=== PATIENT | male | born 2000 | race Caucasian/White ===

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

== ENCOUNTER 2022-09-29 10:45 | Emergency (ER) | payer BC, SELFPAY ==
[2022-09-29 13:05] VITALS: BP 0/0; PULSE 0; RESP 0; TEMP -17.7; TEMP 0
== END 2022-09-29 13:06 | disposition left against medical advice (07) ==
LOC: UTC 10:50
PROVIDERS: Emergency Provider Nurse Practitioner Family; PCP Family Medicine
DX: Z53.21 Procedure and treatment not carried out due to patient leaving prior to being seen by health care provider (principal)

== ENCOUNTER 2024-07-20 13:17 | Emergency (ER) | payer BC, SELFPAY ==
[2024-07-20 13:30] VITALS: BP 143/85; PULSE 74; RESP 20; TEMP 36.7; O2SAT 96; BMI 21.1
--- NOTE | 2024-07-20 13:40 | ED_ITS ---
Discharge Plan Disposition Patient Disposition: Home, Self-Care Condition: Good Prescriptions Prescriptions: New ondansetron 4 mg Tablet,Disintegrating 4 mg PO Q8H PRN (Reason: Nausea) Qty: 20 0RF Referrals Follow up/Referrals: Gianna Dennis MD [Primary Care Provider] - See instructions Activity Restrictions/Add. Instructions Additional Instructions/Restrictions: Drink extra fluids with and between meals. If you have difficulty drinking, try very small amounts of water or suck on ice chips. ? Avoid fruit juices, as these do not replace minerals and can actually increase diarrhea. ? Children and adults can use sports drinks to replenish electrolytes. Younger children and infants should use products formulated for children, like oral rehydration solutions. ? Eat food in small amounts and let your stomach recover. ? Get lots of rest. You may feel tired or weak. ? No greasy or fried foods for the next 24-48 hours BRAT diet Bananas Rice Apples and [place] ? Make sure to drink plenty of liquids ? Return if needed ? Straight to ER if any life threatening symptoms ? Zofran as prescribed ? Follow up with family doctor in the next 48-72 hours if no improvement or any worsening of symptoms Clinical Impressions Clinical Impression: Nausea & vomiting Stand Alone Forms Stand Alone Forms: Work/School Release Instructions Patient Instructions: Ondansetron, Nausea and Vomiting-Adult Print Language Print Language: Indonesian Discharge ED Provider: Rochelle Foley [facility] HPI General Stated complaint: vomiting, stomach pain Mode of Arrival: Ambulatory Source of Information: Patient Time Seen by Provider: 07/20/24 13:41 Description of Symptoms (Recalled from Triage Doc. by RN): VOMITING X4-5 TIMES TODAY, NAUSEA AND MILD STOMACH PAIN HEENT Symptoms (Recalled from RN notes): No Resp Symptoms (Recalled from RN notes): No Skin Symptoms (Recalled from RN notes): No MS Symptoms (Recalled from RN notes): No Functional Status (Recalled from RN notes): WNL History of Present Illness Provider Complaint: Patient states that he started last night with cramping, nausea upset stomach and vomited several times States last time he vomited was around 6am this morning but still having some nausea Denies Diarrhea Denies vomiting blood Related Data Previous Rx's ?Medication ?Instructions ?Recorded ondansetron 4 mg disintegrating 4 mg PO Q8H PRN Nausea #20 tabs 07/20/24 tablet Allergies Allergy/AdvReac Type Severity Reaction Status Date / Time No Known Allergies Allergy Verified 03/13/21 18:09 Worker's Comp Is this a Worker's Comp case?: No [facility] Disclaimer: The information contained in this section may have been updated after the patient was seen, as this information can be updated by other users. Social History Smoking Status: Never smoker alcohol intake: never substance use type: denies use current occupational status: student Travel in the last 8 weeks: None household members: family housing: house ROS Obtained: Yes All systems reviewed & no additional complaints except as documented and Yes Systems reviewed as appropriate & no additional complaints except as documented Constitutional Constitutional: Reports system reviewed and no additional complaints, except as documented and Reports as per HPI ENT Ears, Nose, Mouth, and Throat: Reports system reviewed and no additional complaints, except as documented and Reports as per HPI Cardiovascular Cardiovascular: Reports system reviewed and no additional complaints, except as documented and Reports as per HPI Respiratory Respiratory: Reports system reviewed and no additional complaints, except as documented and Reports as per HPI Gastrointestinal Gastrointestingal: Reports system reviewed and no additional complaints, except as documented, as per HPI, cramping, nausea and vomiting; Denies abdominal pain, bloating, diarrhea, hematemesis, hematochezia, loose stools or melena Physical Exam General General appearance: alert and in no apparent distress ENT ENT exam: Present mucous membranes moist Respiratory Respiratory exam: Present normal lung sounds bilaterally; Absent respiratory distress or wheezes Cardiovascular Cardiovascular exam: Present regular rate, normal rhythm and normal heart sounds Abdominal Exam Abdominal exam: Present soft and normal bowel sounds; Absent distention, tenderness, guarding or rebound Neurological Exam Neurological exam: Present alert, oriented X3 and normal gait Medical Decision Making Medical Records Screening: Per USPSTF and CDC recommendations, given the prevalence of disease in our region, it is our hospital?s policy to screen for HIV and viral Hepatitis for all patients aged 18 and over and those with ongoing risk factors. Humberto Inquiry Pt receiving controlled substance: No Humberto was queried for this patient: No Vital Signs: 07/20/24 13:30 Temperature 98.1 F Temperature Source Oral Pulse Rate [Left Radial] 74 Respiratory Rate 20 Blood Pressure [Left Arm] 143/85 H Blood Pressure Mean [Left Arm] 104 02 Sat by Pulse Oximetry 96
[2024-07-20 13:52] VITALS: BP 143/85; PULSE 74; RESP 20; TEMP 36.7; O2SAT 96
== END 2024-07-20 13:56 | disposition home or self-care (01) ==
PROVIDERS: Emergency Provider Nurse Practitioner; PCP Family Medicine
DX: R11.2 Nausea with vomiting, unspecified (principal); R10.9 Unspecified abdominal pain
CPT/HCPCS: 99212; G0381